=== PATIENT | male | born 1955 | race Caucasian/White ===

== ENCOUNTER 2022-12-30 09:14 | Outpatient (CLI) | payer OTHER | END 2022-12-30 09:15 | disposition home or self-care (01) | LOC: CSHMRI 09:14 | PROVIDERS: ATTEND Family Medicine | DX: M25.511 Pain in right shoulder (principal); R29.898 Other symptoms and signs involving the musculoskeletal system; W19.XXXA Unspecified fall, initial encounter; S42.291A Other displaced fracture of upper end of right humerus, initial encounter for closed fracture; S43.491A Other sprain of right shoulder joint, initial encounter; S46.011A Strain of muscle(s) and tendon(s) of the rotator cuff of right shoulder, initial encounter ==